=== PATIENT | female | born 1945 | race Caucasian/White ===

== ENCOUNTER 2016-06-14 11:48 | Emergency (ER) | payer OTHER ==
[2016-06-14 11:58] VITALS: BP 159/87; PULSE 84; TEMP 98.7; BMI 27.4
[2016-06-14] MEDS ORDERED: DIPHTH,PERTUSS(ACELL),TET 0.5 ML DISP.SYRIN IM ONE (12:16)
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
== END 2016-06-14 14:10 | disposition home or self-care (01) ==
LOC: FER 11:48
PROC: 3E0234Z Introduction of Serum, Toxoid and Vaccine into Muscle, Percutaneous Approach (ICD-10-PCS; principal; 2016-06-14)
DX: S09.90XA Unspecified injury of head, initial encounter (principal); V99.XXXA Unspecified transport accident, initial encounter; Y93.89 Activity, other specified; Y92.410 Unspecified street and highway as the place of occurrence of the external cause; Z87.442 Personal history of urinary calculi; K57.90 Diverticulosis of intestine, part unspecified, without perforation or abscess without bleeding
CPT/HCPCS: 70450-TC; 72125-TC; 73030-TC-LT; 90715; 99283-25

== ENCOUNTER 2020-08-02 12:57 | Emergency (ER) | payer OTHER, MEDICARE ==
[2020-08-02 13:14] VITALS: BP 145/79; PULSE 98; TEMP 99.3; BMI 29.2
== END 2020-08-02 15:38 | disposition home or self-care (01) ==
LOC: FER 12:57
DX: R60.9 Edema, unspecified (principal)
CPT/HCPCS: 73630-TC-RT-FY; 93971-TC; 99284-25